=== PATIENT | female | born 2000 | race Caucasian/White ===

== ENCOUNTER 2021-05-11 11:53 | Emergency (ER) | payer MEDICAID, OTHER, SELFPAY ==
[~2021-05-11] VITALS: Ht 152.4 cm; Wt 64.0 kg
[2021-05-11 12:13] VITALS: BP 116/84
--- NOTE | 2021-05-11 12:27 | NUR ---
pt to lobby for next avaliable bed
--- NOTE | 2021-05-11 12:30 | NUR ---
BIB self from home c/o polar pain x 2-3 weeks with acute onset swelling at 0500 today. Pt referred from OB for possible infection and impact on baby. Pt states "molar fell off last year but did not have any issues until recent." Pt states L cheek bone swelling, symptoms worse with swelling to left eye prior to arrival. 8/10, sharp/throbbing/constant, non-radiating worsen with eating and laying down on affected side. Denies any medications prior to arrival. Denies fever, chills, sore throat, SOB. G1. LMP: 10/2020 PMH/Meds: Prenatals NKA Sx: Denies
[2021-05-11] MEDS ORDERED: cefTRIAXone 1,000 MG in LIDOCAINE MPF 1% 2.1 ML IM ONE (12:55)
[2021-05-11] MEDS ORDERED: ACET-10509 PO (13:03)
[2021-05-11] MEDS ORDERED: CEPH-588 PO (13:03)
[2021-05-11] MEDS ORDERED: cefTRIAXone 1,000 MG VIAL ONE (13:08)
[2021-05-11] MEDS ORDERED: LIDOCAINE MPF 1% 5 ML ONE (13:09)
--- NOTE | 2021-05-11 13:27 | NUR ---
Patient discharged with v/s stable. Written and verbal after care instructions given and explained. Patient alert, oriented and verbalized understanding of instructions. Ambulatory with steady gait. All questions addressed prior to discharge. ID band removed. Patient advised to follow up with PMD. Rx of KEFLEX & TYLENOL given. Patient educated on indication of medication including possible reaction and side effects. Opportunity to ask questions provided and answered.
[2021-05-11 13:28] VITALS: BP 116/84
== END 2021-05-11 13:27 | disposition home or self-care (01) ==
LOC: MED 11:53
DX: O26.892 Other specified pregnancy related conditions, second trimester (principal); K04.7 Periapical abscess without sinus; Z79.899 Other long term (current) drug therapy; Z79.2 Long term (current) use of antibiotics; Z3A.24 24 weeks gestation of pregnancy
CPT/HCPCS: 96372; 99283; J0696; J2001

== ENCOUNTER 2021-05-20 19:10 | Emergency (ER) | payer MEDICAID ==
[~2021-05-20] VITALS: Ht 152.4 cm; Wt 64.0 kg
[~2021-05-20 19:10] MED LIST: ACET-10509 PO; CEPH-588 PO
[2021-05-20 20:26] VITALS: BP 117/70
--- NOTE | 2021-05-20 20:26 | NUR ---
TO BED AMBULATORY
--- NOTE | 2021-05-20 20:35 | NUR ---
21/ C/O GUMPAIN AND FACIAL SWELLING ON THE LEFT SIDE FOR 1 WEEK NOW, PT DESCRIBES PAIN THROBBING WITH A SCALE OF 10/10. PT WAS SEEN BY DENTIST LAST MONDAY AND WAS PRESCRIBED WITH KEFLEX. PT CURRENTLY 6 MONTHS . DENIES PMH NKDA
--- NOTE | 2021-05-20 20:46 | NUR ---
Dr. Macdonald examining patient.
[2021-05-20] MEDS ORDERED: LIDOCAINE/EPI 1% 1:100000 20 ML VIAL INJ ONE (21:22)
[2021-05-20 21:29] LABS: BASOPHILS % (AUTO) 0.2 % (0.0-2.0); EOSINOPHILS # (AUTO) 0.1 K/uL (0-0.4); EOSINOPHILS % (AUTO) 0.4 % (0.0-4.0); HEMATOCRIT 34.2 % (36-48); HEMOGLOBIN 11.6 g/dL (12.0-16.0); LYMPHOCYTES # (AUTO) 1.3 K/uL (2.5-16.5); LYMPHOCYTES % (AUTO) 9.4 % (20.5-51.1); MEAN CORPUSCULAR HEMOGLOBIN 31 pg (27-31); MEAN CORPUSCULAR HGB CONC 34 g/dL (33-37); MEAN CORPUSCULAR VOLUME 91.9 fL (80-94); MONOCYTES # (AUTO) 1.4 K/uL (0.8-1.0); MONOCYTES % (AUTO) 9.5 % (1.7-9.3); NEUTROPHILS # (AUTO) 11.6 K/uL (1.8-7.7); NEUTROPHILS % (AUTO) 80.5 % (42.2-75.2); PLATELET COUNT (AUTO) 306 K/uL (140-450); RED BLOOD CELL COUNT(AUTO) 3.72 MIL/uL (4.20-5.40); RED CELL DISTRIBUTION WIDTH 13.5 % (11.6-13.7); WHITE BLOOD COUNT (AUTO) 14.4 K/uL (4.8-10.8)
[2021-05-20] MEDS ORDERED: MORPHINE SULFATE 4 MG/ML SYR IM ONE (21:30)
[2021-05-20] MEDS ORDERED: MORPHINE SULFATE 4 MG/ML SYR ONE (21:32)
[2021-05-20] MEDS ORDERED: MORPHINE SULFATE 4 MG/ML SYR IVP ONE (21:35)
[2021-05-20 21:45] LABS: ANION GAP 12.8 (8-16); CARBON DIOXIDE 24.8 mmol/L (21-32); CREATININE 0.4 mg/dL (0.6-1.3); POTASSIUM 3.6 mmol/L (3.5-5.1); TOTAL BILIRUBIN 0.2 mg/dL (0.0-1.0)
[2021-05-20] MEDS ORDERED: AMPICILLIN/SULBACTAM 3 GM in NACL 0.9% 100 ML IV ONE (22:00)
--- NOTE | 2021-05-20 22:00 | NUR ---
PT TAKEN TO CT
[2021-05-20] MEDS ORDERED: AMPICILLIN/SULBACTAM 3 GM VIAL ONE (22:24)
[2021-05-20] MEDS ORDERED: ACET-8386 PO (22:57)
[2021-05-20] MEDS ORDERED: AMOX1TAB8 PO (22:58)
[2021-05-21 00:19] VITALS: BP 121/69
--- NOTE | 2021-05-21 00:19 | NUR ---
Patient discharged with v/s stable. Written and verbal after care instructions given and explained. Patient alert, oriented and verbalized understanding of instructions. Ambulatory with steady gait. All questions addressed prior to discharge. ID band AND IV ACCESS removed. Patient advised to follow up with PMD. Rx of AMOX-CLAV, NORCO given. Patient educated on indication of medication including possible reaction and side effects. Opportunity to ask questions provided and answered.
== END 2021-05-21 00:19 | disposition home or self-care (01) ==
LOC: MED 19:10
DX: O26.892 Other specified pregnancy related conditions, second trimester (principal); L02.01 Cutaneous abscess of face; Z3A.24 24 weeks gestation of pregnancy
CPT/HCPCS: 36415; 41800; 70487; 80053; 85025; 96365; 96375; 99285; J0295; J2001; J2270; Q9967

== ENCOUNTER 2021-08-06 20:05 | Observation (INO) | payer MEDICAID ==
[~2021-08-06] VITALS: Ht 152.4 cm; Wt 70.8 kg
[~2021-08-06 20:05] MED LIST changes: +ACET-8386 PO; +AMOX1TAB8 PO
[2021-08-11] MEDS ORDERED: FERR325E14 PO (13:20)
[2021-08-11] MEDS ORDERED: MULT-2253 PO (13:21)
== END 2021-08-06 21:15 | disposition home or self-care (01) ==
LOC: UNDOADMIN 20:05 → MLD 20:05 → UNDODISIN 21:15
PROVIDERS: ADMIT Obstetrics & Gynecology; ATTEND Obstetrics & Gynecology
DX: O60.03 Preterm labor without delivery, third trimester (principal); Z3A.38 38 weeks gestation of pregnancy
CPT/HCPCS: 59025; 81000; G0378